=== PATIENT | male | born 2000 | race Caucasian/White ===

== ENCOUNTER 2018-10-02 22:58 | Emergency (ER) | payer BC ==
[2018-10-02] MEDS ORDERED: DICYCLOMINE 10 MG/ML 2 ML AMP IM STA (23:31)
[2018-10-02] MEDS ORDERED: SODIUM CHLORIDE 0.9% 1,000 ML IV STA (23:31)
[2018-10-03 00:07] LABS: Basophils # (A) 0.1 k/uL (0-0.2); Basophils % (A) 1 %; Eosinophils # (A) 1.5 k/uL (0-0.7); Eosinophils % (A) 14 %; HCT 46.5 % (39.0-53.0); HGB 15.6 gm/dL (13.0-17.5); Lymphocytes # (A) 2.1 k/uL (1.0-4.8); Lymphocytes % (A) 20 %; MCH 30.7 pg (25.0-35.0); MCHC 33.6 g/dL (31.0-37.0); MCV 91.4 fL (80.0-100.0); Mean Platelet Volume 7.2; Monocytes # (A) 0.6 k/uL (0-1.0); Monocytes % (A) 6 %; Neutrophils % (A) 58 %; Platelet Count 233 k/uL (150-450); RBC 5.08 m/uL (4.30-5.90); RDW 13.1 % (11.5-15.5); WBC 10.4 k/uL (4.0-11.0)
[2018-10-03 00:08] LABS: Appearance,Urine Clear (Clear); Bilirubin,Urine Negative (Negative); Blood,Urine Negative (Negative); Color,Urine Colorless; Glucose,Urine (UA) Negative (Negative); Ketones,Urine Negative (Negative); Leukocyte Esterase,Urine Negative (Negative); Nitrite,Urine Negative (Negative); Protein,Urine Negative (Negative); Specific Gravity,Urine 1.005 (1.001-1.035); Urobilinogen,Urine <2.0 mg/dL (<2.0)
--- NOTE | 2018-10-03 00:43 | XR ---
History: ITS.REASON XR Reason: abdominal pain Exam: XR KUB 2 total images Comparison: None available FINDINGS: The lung bases appear clear. Mild leftward curvature, scoliosis. Nonspecific bowel gas pattern with paucity of small bowel gas. No gaseous distention of bowel. No evidence of free air or abnormal abdominal calcifications identified. IMPRESSION: Nonspecific bowel gas pattern with paucity of small bowel gas. No gaseous distention of bowel. Mild leftward curvature, scoliosis.
[2018-10-03 02:08] LABS: ALT 93 U/L (21-72); AST 40 U/L (17-59); Albumin 4.2 g/dL (3.5-5.0); Alkaline Phosphatase 83 U/L (38-126); Amylase 57 U/L (30-110); Anion Gap 7 mmol/L; Blood Urea Nitrogen 16 mg/dL (9-20); Calcium 9.9 mg/dL (8.4-10.2); Carbon Dioxide 27 mmol/L (22-30); Chloride 108 mmol/L (98-107); Glucose 105 mg/dL (74-99); Lipase 94 U/L (23-300); Potassium 4.3 mmol/L (3.5-5.1); Sodium 142 mmol/L (137-145); Total Bilirubin 0.4 mg/dL (0.2-1.3); Total Protein 7.1 g/dL (6.3-8.2)
[2018-10-03 02:47] LABS: C Reactive Protein <5.0 mg/L (<10.0)
[2018-10-03] MEDS ORDERED: MORPHINE SULFATE 2 MG/ML SYRINGE IVP STA (02:55)
[2018-10-03] MEDS ORDERED: KETOROLAC 30 MG/ML 1 ML VIAL IVP STA (02:55)
[2018-10-03] MEDS ORDERED: MAGNESIUM CITRATE 296 ML BOTTLE PO ONE (02:56)
--- NOTE | 2018-10-03 03:00 | ED ---
Abdominal Pain HPI - General Chief Complaint: Abdominal Pain Stated Complaint: Lower Abd Pain LRQ Time Seen by Provider: 10/02/18 23:10 Source: patient Mode of arrival: ambulatory Limitations: no limitations - History of Present Illness Initial Comments: 18-year-old male patient presents to the emergency department today for evaluation of lower abdominal pain. Patient describes the pain as a burning type pain that waxes and wanes. States his been going on for the last week especially after eating. States he does not have any nausea or vomiting. Denies any difficulties with bowel movements or urination. Denies any back pain with this. Denies fevers or chills. Denies any history of similar symptoms. Denies any history of abdominal surgery. Patient denies any recent rash, shortness breath, chest pain, back pain, numbness, tingling, dizziness, weakness, hematuria, dysuria, urinary urgency, urinary frequency, headache, visual changes, or any other complaints. - Related Data Previous Rx's Medication Instructions Recorded Dicyclomine [Bentyl] 20 mg PO QID #20 tablet 10/03/18 Allergies Allergy/AdvReac Type Severity Reaction Status Date / Time No Known Allergies Allergy Verified 10/02/18 23:09 Review of Systems ROS Statement: Those systems with pertinent positive or pertinent negative responses have been documented in the HPI. ROS Other: All systems not noted in ROS Statement are negative. Past Medical History Past Medical History: No Reported History History of Any Multi-Drug Resistant Organisms: None Reported Past Surgical History: No Surgical Hx Reported Past Psychological History: No Psychological Hx Reported Smoking Status: Never smoker Past Alcohol Use History: None Reported Past Drug Use History: None Reported General Exam Limitations: no limitations General appearance: alert, in no apparent distress, other (Social well-developed , well-nourished adult male patient in no acute distress. Vital signs upon presentation are temperature 97.9F, pulse 75, respirations 20, blood pressure 145/89, pulse ox 100% on room air.) Eye exam: Present: normal appearance, PERRL, EOMI. Absent: scleral icterus, conjunctival injection, periorbital swelling ENT exam: Present: normal exam, normal oropharynx, mucous membranes moist Respiratory exam: Present: normal lung sounds bilaterally. Absent: respiratory distress, wheezes, rales, rhonchi, stridor Cardiovascular Exam: Present: regular rate, normal rhythm, normal heart sounds. Absent: systolic murmur, diastolic murmur, rubs, gallop, clicks GI/Abdominal exam: Present: soft, tenderness (Lower abdominal tenderness), normal bowel sounds. Absent: distended, guarding, rebound, rigid Neurological exam: Present: alert, oriented X3, CN II-XII intact Psychiatric exam: Present: normal affect, normal mood Skin exam: Present: warm, dry, intact, normal color. Absent: rash Course Vital Signs 10/02/18 22:59 Temperature 97.9 F Pulse Rate 75 Respiratory 20 Rate Blood Pressure 145/89 O2 Sat by Pulse 100 Oximetry Medical Decision Making - Medical Decision Making 18-year-old male patient presents to the emergency department today for evaluation of lower abdominal pain mostly over the right lower quadrant. Physical examination did reveal lower abdominal tenderness. Patient does report the symptoms occurring over the last week especially with eating. Denies any vomiting or anorexia. Denies any fever or chills. Bowel movements have been normal. Labs reviewed and are unremarkable. Normal white blood cell count, normal CRP. KUB x-ray of the abdomen showed overall nonobstructive bowel gas pattern. I did discuss findings and results with the patient and parent. We did discuss follow-up with his primary care physician for further evaluation and possible referral to gastroenterology. He'll be given magnesium citrate for possible constipation be given Bentyl as well for discomfort. Return parameters were discussed in detail. He verbalizes understanding and agrees this plan. - Lab Data Result diagrams: 10/02/18 23:50 10/02/18 23:50 Lab Results 10/02/18 10/02/18 10/02/18 Range/Units 23:50 23:50 23:50 WBC 10.4 (4.0-11.0) k/uL RBC 5.08 (4.30-5.90) m/uL Hgb 15.6 (13.0-17.5) gm/dL Hct 46.5 (39.0-53.0) % MCV 91.4 (80.0-100.0) fL MCH 30.7 (25.0-35.0) pg MCHC 33.6 (31.0-37.0) g/dL RDW 13.1 (11.5-15.5) % Plt Count 233 (150-450) k/uL Neutrophils % 58 % Lymphocytes % 20 % Monocytes % 6 % Eosinophils % 14 % Basophils % 1 % Neutrophils # 6.0 (1.3-7.7) k/uL Lymphocytes # 2.1 (1.0-4.8) k/uL Monocytes # 0.6 (0-1.0) k/uL Eosinophils # 1.5 H (0-0.7) k/uL Basophils # 0.1 (0-0.2) k/uL Sodium 142 (137-145) mmol/L Potassium 4.3 (3.5-5.1) mmol/L Chloride 108 H (98-107) mmol/L Carbon Dioxide 27 (22-30) mmol/L Anion Gap 7 mmol/L BUN 16 (9-20) mg/dL Creatinine 0.98 (0.66-1.25) mg/dL Est GFR (CKD-EPI)AfAm >90 (>60 ml/min/1.73 sqM) Est GFR (CKD-EPI)NonAf >90 (>60 ml/min/1.73 sqM) Glucose 105 H (74-99) mg/dL Calcium 9.9 (8.4-10.2) mg/dL Total Bilirubin 0.4 (0.2-1.3) mg/dL AST 40 (17-59) U/L ALT 93 H (21-72) U/L Alkaline Phosphatase 83 (38-126) U/L C-Reactive Protein <5.0 (<10.0) mg/L Total Protein 7.1 (6.3-8.2) g/dL Albumin 4.2 (3.5-5.0) g/dL Amylase 57 (30-110) U/L Lipase 94 (23-300) U/L Urine Color Colorless Urine Appearance Clear (Clear) Urine pH 6.0 (5.0-8.0) Ur Specific [place] 1.005 (1.001-1.035) Urine Protein Negative (Negative) Urine Glucose (UA) Negative (Negative) Urine Ketones Negative (Negative) Urine Blood Negative (Negative) Urine Nitrite Negative (Negative) Urine Bilirubin Negative (Negative) Urine Urobilinogen <2.0 (<2.0) mg/dL Ur Leukocyte Esterase Negative (Negative) - Radiology Data Radiology results: report reviewed, image reviewed Two-view x-ray of the abdomen is obtained. Report was reviewed in its entirety. Impression by Dr. Grider shows nonspecific bowel gas pattern with possibly a small bowel gas. No gaseous distention of bowel. Mild leftward curvature, scoliosis. Disposition Clinical Impression: Abdominal pain Disposition: HOME SELF-CARE Condition: Good Instructions (If sedation given, give patient instructions): Abdominal Pain (ED ) Additional Instructions: Follow-up with the primary care physician for recheck in 1-2 days. Take medications as instructed. Return to the emergency department immediately for any new, worsening, or concerning symptoms. Prescriptions: Dicyclomine [Bentyl] 20 mg PO QID #20 tablet Is patient prescribed a controlled substance at d/c from ED?: No Referrals: Osmany Edmonds MD [Primary Care Provider] - 1-2 days Time of Disposition: 03:00
[2018-10-03 03:09] VITALS: BP 133/77; PULSE 79; RESP 16; TEMP 98
== END 2018-10-03 03:09 | disposition home or self-care (01) ==
LOC: EC 22:58
DX: R10.31 Right lower quadrant pain (principal); M41.9 Scoliosis, unspecified
CPT/HCPCS: 36415; 80053; 82150; 83690; 85025; 86140; 81003; 74018; 99284; 96374; 96375; 96361; 96372; J0500; J1885; J2270